=== PATIENT | male | born 1975 | race Caucasian/White ===

== ENCOUNTER 2024-08-29 16:49 | Outpatient (CLI) | payer OTHER, SELFPAY ==
--- NOTE | ~2024-08-29 | XR_ITS ---
XR knee RT 3V Ordering provider: Alberto Hamilton, BECKY History: . Pain in right knee x several mos; no injury . Comparison: None. FINDINGS: BONES: No acute fracture or dislocation. Old healed fracture in the proximal tibia is noted. JOINT SPACES: Narrowing of the medial compartment is noted with marginal osteophytes. Marginal osteop hytes seen in the patella. SOFT TISSUES: Normal. IMPRESSION: No acute osseous abnormality right knee. Severe osteoarthritic changes. Reviewed, dictated and finalized at location A.
--- OUTSIDE RECORDS SUMMARY | 2024-08-29 16:58 | XMS_ITS | Clinical Summary ---
Author Organization [facility] [address] Address [address] [place] [address] Care Team Providers Care Senior Vice President & General Counsel Name Role Phone Alberto Hamilton Primary Care Provider [phone] Allergies No known active allergies Medications No known medications Active Problems No known active problems Surgical History Surgery Date Site/Laterality Comments KNEE ARTHROSCOPY Family History Medical History Relation Name Comments Cancer Other Relation Name Status Comments Other Social History Tobacco Use Types Packs/Day Years Used Date Smoking Tobacco: Never Assessed Sex and Gender Information Value Date Recorded Sex Assigned at Not on file Legal Sex Male 1:04 PM [employer] Gender Identity Not on file Sexual Orientation Not on file Obstetrics History Last Filed Vital Signs Vital Sign Reading Time Taken Comments Blood Pressure 124/73 12/24/2021 3:17 PM CDT Pulse 85 12/24/2021 3:17 PM CDT Temperature - - Respiratory Rate - - Oxygen Saturation - - Inhaled Oxygen Concentration - - Weight 116.7 kg (257 lb 3.2 oz) 12/24/2021 3:17 PM CDT Height 180.3 cm (5' 11 ) 12/24/2021 3:17 PM CDT Body Mass Index 35.87 12/24/2021 3:17 PM CDT Plan of Treatment Health Maintenance Due Date Last Done Comments Colon Cancer Screening-Colonoscopy 1973 Depression Screening 1973 Hepatitis C Screening 1973 Prostate Cancer Screening-PSA 1973 DTaP/Tdap/Td Vaccine (1 - Tdap) 01/31/1984 Hepatitis B Screening 1991 Regular Well Visit/Exam 18-64 1991 Zoster Vaccine (1 of 2) 2023 Influenza Vaccine (#1) 2024 Pneumococcal vaccine <65 Aged Out No longer eligible based on patient's age to complete this topic Insurance [facility] Care Teams Senior Vice President & General Counsel Relationship Specialty Start Date End Date Alberto Hamilton PA [address] [place] [address] PCP - General Family Practice 11/10/21
--- OUTSIDE RECORDS SUMMARY | 2024-08-29 16:58 | XMS_ITS | Data Portability ---
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 Plan of Treatment Reminders Order Date Submit Date Provider Last Modified By Organization Details Last Modified Time Details Appointments None recorded. Lab CBC 2024 025 [facility], [address] [facility], [facility], [place], [address], 5 19:15:20 CMP, serum or plasma 2024 025 [facility], [address] [place] [address], [facility], [place], [address], 5 19:15:20 lipid panel, serum 2024 025 [facility], [address] [facility], [facility], [place], [address], 5 19:15:20 HbA1c (hemoglob in A1c), blood 2024 025 [facility], [address] [facility], [facility], [place], [address], 5 19:15:19 CBC 2023 024 [facility], [address] [facility], [facility], [place], [address], 4 09:14:10 CMP, serum or plasma 2023 024 [facility], [address] [facility], [place] [address], [place], [address], 4 09:14:08 lipid panel, serum 2023 024 [facility], [address] [facility], [facility], [place], [address], 4 09:14:07 CBC 2022 023 [facility], [address] [facility], [facility], [place], [address], 3 10:12:25 CMP, serum or plasma 2022 023 [facility], [address] [facility], [facility], [place], [address], 3 10:12:24 lipid panel, serum 2022 023 [facility], [address] [facility], [facility], [place], [address], 3 10:12:24 Referral None recorded. Procedures None recorded. Surgeries None recorded. Imaging XR, knee 2024 025 [facility] (Im[facility]), [address], [place], [address], 5 19:15:15 Medication Orders cyclobenz aprine 10 mg tablet 2022 023 [email or web address], [address], [place], [id number], 5 18:39:37 naproxen 500 mg tablet 2022 023 [email or web address], [address], [place], [id number], 5 18:39:50 Cialis 20 mg tablet 2022 023 [facility], [address], [place], [id number], 17:27:58 Patient TargetsNo targets recorded. Patient Instructions Encounter Date Encounter Id Patient Instructions Last Modified By Organization Details Last Modified Time 04/10/2023 [id number] A healthy lifestyle: care instructions jnanney Not available 04/10/2023 10:36:46 10/05/2023 [id number] A healthy lifestyle: care instructions jnanney Not available 10/05/2023 11:15:40 08/27/2024 [id number] When You Want to Lose Weight: Care Instructions jnanney Not available 08/27/2024 19:15:04 Reason for Referral None Reported. Results Created Date Observation Date Name Description Value Unit Range Abnormal Flag Note LastModifiedBy Organization Detail LastModifiedTime 10/27/1910/28/2022 LIPID PANEL cholesterol, total 115 mg/dL 100-19 9 Not Available [facility] ([facility]) [address] [place], [address], 10/28/2022 10:12:24 10/27/19 23 10/28/2022 LIPID PANEL triglyceride s 142 mg/dL 0-149 Not Available [facility] ([facility]) [address] [place], [address], 10/28/2022 10:12:24 10/27/19 23 10/28/2022 LIPID PANEL HDL cholesterol 27 mg/dL >39 below low normal Not Available [facility] ([facility]) [address] [place], [address], 10/28/2022 10:12:24 10/27/19 23 10/28/2022 LIPID PANEL VLDL cholesterol deni 25 mg/dL 5-40 Not Available [facility] ([facility]) [address] [place], [address], 10/28/2022 10:12:24 10/27/19 23 10/28/2022 LIPID PANEL LDL chol calc ([facility]) 63 mg/dL 0-99 Not Available [facility] ([facility]) [address] [place], [address], 10/28/2022 10:12:24 10/27/19 23 10/28/2022 COMP. METAB OLIC PANEL (14) glucose 91 mg/dL 70-99 Not Available [facility] ([facility]) [address] [place], [address], 10/28/2022 10:12:24 10/27/19 23 10/28/2022 COMP. METAB OLIC PANEL (14) BUN 16 mg/dL 6-24 Not Available [facility] ([facility]) [address] [place], [address], 10/28/2022 10:12:24 10/27/19 23 10/28/2022 COMP. METAB OLIC PANEL (14) creatinine 1.11 mg/dL 0.76-1 .27 Not Available [facility] ([facility]) [address] [place], [address], 10/28/2022 10:12:24 10/27/19 23 10/28/2022 COMP. METAB OLIC PANEL (14) eGFR 81 mL/mi n/1.7 3 >59 Not Available [facility] ([facility]) [address] [place], [address], 10/28/2022 10:12:24 10/27/19 23 10/28/2022 COMP. METAB OLIC PANEL (14) BUN/creatini ne ratio 14 9-20 Not Available [facility] ([facility]) [address] [place], [address], 10/28/2022 10:12:24 10/27/19 23 10/28/2022 COMP. METAB OLIC PANEL (14) sodium 138 mmol/ L 134-14 4 Not Available [facility] ([facility]) [address] [place], [address], 10/28/2022 10:12:24 10/27/19 23 10/28/2022 COMP. METAB OLIC PANEL (14) potassium 4.5 mmol/ L 3.5-5. 2 Not Available [facility] ([facility]) [address] [facility], [place], [address], 10/28/2022 10:12:24 10/27/19 23 10/28/2022 COMP. METAB OLIC PANEL (14) chloride 102 mmol/ L 96-106 Not Available [facility] ([facility]) [address] [facility], [place], [address], 10/28/2022 10:12:24 10/27/19 23 10/28/2022 COMP. METAB OLIC PANEL (14) carbon dioxide, total 21 mmol/ L 20-29 Not Available [facility] ([facility]) [address] [place], [address], 10/28/2022 10:12:24 10/27/19 23 10/28/2022 COMP. METAB OLIC PANEL (14) calcium 9.4 mg/dL 8.7-10 .2 Not Available [facility] ([facility]) [address] [place], [address], 10/28/2022 10:12:24 10/27/19 23 10/28/2022 COMP. METAB OLIC PANEL (14) protein, total 6.9 g/dL 6.0-8. 5 Not Available [facility] ([facility]) [address] [place], [address], 10/28/2022 10:12:24 10/27/19 23 10/28/2022 COMP. METAB OLIC PANEL (14) albumin 5.0 g/dL 4.0-5. 0 Not Available [facility] ([facility]) [address] [facility], [place], [address], 10/28/2022 10:12:24 10/27/19 23 10/28/2022 COMP. METAB OLIC PANEL (14) globulin, total 1.9 g/dL 1.5-4. 5 Not Available [facility] ([facility]) [address] [place], [address], 10/28/2022 10:12:24 10/27/19 23 10/28/2022 COMP. METAB OLIC PANEL (14) A/G ratio 2.6 1.2-2. 2 above high normal Not Available [facility] ([facility]) [address] [facility], [place], [address], 10/28/2022 10:12:24 10/27/19 23 10/28/2022 COMP. METAB OLIC PANEL (14) bilirubin, total 0.3 mg/dL 0.0-1. 2 Not Available [facility] ([facility]) [address] [place], [address], 10/28/2022 10:12:24 10/27/19 23 10/28/2022 COMP. METAB OLIC PANEL (14) alkaline phosphatase 90 IU/L 44-121 Not Available [facility] ([facility]) [address] [place], [address], 10/28/2022 10:12:24 10/27/19 23 10/28/2022 COMP. METAB OLIC PANEL (14) AST (SGOT) 24 IU/L 0-40 Not Available [facility] ([facility]) [address] [place], [address], 10/28/2022 10:12:24 10/27/19 23 10/28/2022 COMP. METAB OLIC PANEL (14) ALT (SGPT) 16 IU/L 0-44 Not Available [facility] ([facility]) [address] [place], [address], 10/28/2022 10:12:24 10/27/19 23 10/28/2022 CBC, PLATE LET, NO DIFFE RENTI AL WBC 7.2 x10e3 /uL 3.4-10 .8 Not Available [facility] ([facility]) [address] [place], [address], 10/28/2022 10:12:25 10/27/1910/28/2022 CBC, PLATE LET, NO DIFFE RENTI AL RBC 4.91 x10e6 /uL 4.14-5 .80 Not Available [facility] ([facility]) [address] [place], [address], 10/28/2022 10:12:25 10/27/1910/28/2022 CBC, PLATE LET, NO DIFFE RENTI AL hemoglobin 15.2 g/dL 13.0-1 7.7 Not Available [facility] ([facility]) [address] [place], [address], 10/28/2022 10:12:25 10/27/1910/28/2022 CBC, PLATE LET, NO DIFFE RENTI AL hematocrit 44.8 % 37.5-5 1.0 Not Available [facility] ([facility]) [address] [place], [address], 10/28/2022 10:12:25 10/27/1910/28/2022 CBC, PLATE LET, NO DIFFE RENTI AL MCV 91 fL 79-97 Not Available [facility] ([facility]) [address] [place], [address], 10/28/2022 10:12:25 10/27/1910/28/2022 CBC, PLATE LET, NO DIFFE RENTI AL MCH 31.0 pg 26.6-3 3.0 Not Available [facility] ([facility]) [address] [place], [address], 10/28/2022 10:12:25 10/27/1910/28/2022 CBC, PLATE LET, NO DIFFE RENTI AL MCHC 33.9 g/dL 31.5-3 5.7 Not Available [facility] ([facility]) [address] [facility], [place], [address], 10/28/2022 10:12:25 10/27/19 23 10/28/2022 CBC, PLATE LET, NO DIFFE RENTI AL RDW 13.3 % 11.6-1 5.4 Not Available [facility] ([facility]) [address] [facility], [place], [address], 10/28/2022 10:12:25 10/27/19 23 10/28/2022 CBC, PLATE LET, NO DIFFE RENTI AL platelets 163 x10e3 /uL 150-45 0 Not Available [facility] ([facility]) [address] [facility], [place], [address], 10/28/2022 10:12:25 10/27/19 23 10/28/2022 CARDI OVASC ULAR REPOR T interpretati on Note Suppl ement al repor t is avail able. Not Available [facility] ([facility]) [address] [facility], [place], [address], 10/28/2022 10:12:25 10/27/19 23 10/28/2022 CARDI OVASC ULAR REPOR T pdf . Not Available [facility] ([facility]) [address] [facility], [place], [address], 10/28/2022 10:12:25 10/05/1910/06/2023 LIPID PANEL cholesterol, total 169 mg/dL 100-[address] [facility] [address] [place], [address], 10/06/2023 09:14:07 10/05/1910/06/2023 LIPID PANEL triglyceride s 383 mg/dL 0-149 above high normal Not Available [facility] [address] [place], [address], 10/06/2023 09:14:07 10/05/19 24 10/06/2023 LIPID PANEL HDL cholesterol 24 mg/dL >39 below low normal Not Available [address], [address], 10/06/2023 09:14:07 10/05/19 24 10/06/2023 LIPID PANEL VLDL cholesterol deni 62 mg/dL 5-40 above high normal Not Available [address], [address], 10/06/2023 09:14:07 10/05/19 24 10/06/2023 LIPID PANEL LDL chol calc (nih) 83 mg/dL 0-99 Not Available [address], [address], 10/06/2023 09:14:07 10/05/19 24 10/06/2023 COMP. METAB OLIC PANEL (14) glucose 101 mg/dL 70-99 above high normal Not Available [address], [address], 10/06/2023 09:14:08 10/05/19 24 10/06/2023 COMP. METAB OLIC PANEL (14) BUN 14 mg/dL 6-24 Not Available [address], [address], 10/06/2023 09:14:08 10/05/19 24 10/06/2023 COMP. METAB OLIC PANEL (14) creatinine 1.14 mg/dL 0.76-1 .27 Not Available [address], [address], 10/06/2023 09:14:08 10/05/19 24 10/06/2023 COMP. METAB OLIC PANEL (14) eGFR 78 mL/mi n/1.7 3 >59 Not Available [address], [address], 10/06/2023 09:14:08 10/05/19 24 10/06/2023 COMP. METAB OLIC PANEL (14) BUN/creatini ne ratio 12 9-20 Not Available [address], [address], 10/06/2023 09:14:08 10/05/19 24 10/06/2023 COMP. METAB OLIC PANEL (14) sodium 140 mmol/ L 134-14 4 Not Available [address], [address], 10/06/2023 09:14:08 10/05/19 24 10/06/2023 COMP. METAB OLIC PANEL (14) potassium 4.3 mmol/ L 3.5-5. 2 Not Available [address], [address], 10/06/2023 09:14:08 10/05/19 24 10/06/2023 COMP. METAB OLIC PANEL (14) chloride 106 mmol/ L 96-106 Not Available [address], [address], 10/06/2023 09:14:08 10/05/19 24 10/06/2023 COMP. METAB OLIC PANEL (14) carbon dioxide, total 18 mmol/ L 20-29 below low normal Not Available [address], [address], 10/06/2023 09:14:08 10/05/19 24 10/06/2023 COMP. METAB OLIC PANEL (14) calcium 9.6 mg/dL 8.7-10 .2 Not Available [address], [address], 10/06/2023 09:14:08 10/05/19 24 10/06/2023 COMP. METAB OLIC PANEL (14) protein, total 6.8 g/dL 6.0-8. 5 Not Available [address], [address], 10/06/2023 09:14:08 10/05/19 24 10/06/2023 COMP. METAB OLIC PANEL (14) albumin 4.5 g/dL 4.1-5. 1 Not Available [address], [address], 10/06/2023 09:14:08 10/05/19 24 10/06/2023 COMP. METAB OLIC PANEL (14) globulin, total 2.3 g/dL 1.5-4. 5 Not Available [address], [address], 10/06/2023 09:14:08 10/05/19 24 10/06/2023 COMP. METAB OLIC PANEL (14) A/G ratio 2.0 1.2-2. 2 Not Available [address], [address], 10/06/2023 09:14:08 10/05/19 24 10/06/2023 COMP. METAB OLIC PANEL (14) bilirubin, total 0.4 mg/dL 0.0-1. 2 Not Available [address], [address], 10/06/2023 09:14:08 10/05/19 24 10/06/2023 COMP. METAB OLIC PANEL (14) alkaline phosphatase 86 IU/L 44-121 Not Available [address], [address], 10/06/2023 09:14:08 10/05/19 24 10/06/2023 COMP. METAB OLIC PANEL (14) AST (SGOT) 28 IU/L 0-40 Not Available [facility] [address], [address], 10/06/2023 09:14:08 10/05/1910/06/2023 COMP. METAB OLIC PANEL (14) ALT (SGPT) 26 IU/L 0-44 Not Available [address], [address], 10/06/2023 09:14:08 10/05/19 24 10/06/2023 CARDI OVASC ULAR REPOR T interpretati on Note Suppl ement al repor t is avail able. Not Available [address], [address], 10/06/2023 09:14:09 10/05/19 24 10/06/2023 CARDI OVASC ULAR REPOR T pdf . Not Available [address], [address], 10/06/2023 09:14:09 10/05/19 24 10/06/2023 CBC, PLATE LET, NO DIFFE RENTI AL WBC 5.3 x10e3 /uL 3.4-10 .8 Not Available [address], [address], 10/06/2023 09:14:10 10/05/19 24 10/06/2023 CBC, PLATE LET, NO DIFFE RENTI AL RBC 4.76 x10e6 /uL 4.14-5 .80 Not Available [address], [address], 10/06/2023 09:14:10 10/05/19 24 10/06/2023 CBC, PLATE LET, NO DIFFE RENTI AL hemoglobin 14.5 g/dL 13.0-1 7.7 Not Available [address], [address], 10/06/2023 09:14:10 10/05/19 24 10/06/2023 CBC, PLATE LET, NO DIFFE RENTI AL hematocrit 42.4 % 37.5-5 1.0 Not Available [address], [address], 10/06/2023 09:14:10 10/05/1910/06/2023 CBC, PLATE LET, NO DIFFE RENTI AL MCV 89 fL 79-97 Not Available [address], [address], 10/06/2023 09:14:10 10/05/1910/06/2023 CBC, PLATE LET, NO DIFFE RENTI AL MCH 30.5 pg 26.6-3 3.0 Not Available [address], [address], 10/06/2023 09:14:10 10/05/1910/06/2023 CBC, PLATE LET, NO DIFFE RENTI AL MCHC 34.2 g/dL 31.5-3 5.7 Not Available [address], [address], 10/06/2023 09:14:10 10/05/1910/06/2023 CBC, PLATE LET, NO DIFFE RENTI AL RDW 13.5 % 11.6-1 5.4 Not Available [address], [address], 10/06/2023 09:14:10 10/05/1910/06/2023 CBC, PLATE LET, NO DIFFE RENTI AL platelets 168 x10e3 /uL 150-45 0 Not Available [address], [address], 10/06/2023 09:14:10 Result Notes None recorded. Problems No Known Problems Procedures Surgical History Date Name Laterality Status Provider Name and Address Organization Details Recorded Time 2 Unlisted px arthroscopy completed Nicole balderas [place] - [facility] 10/25/2021 16:11:46 Imaging Results None recorded. Procedure Notes None recorded. Medical Equipment None Reported. Allergies No known drug allergies Medications Name Sig Start Date Stop Date Status Note LastModified by Organization Details LastModified Time cyclobenzapr ine 10 mg tablet Take 1 tablet 3 times a day by oral route as needed for 30 days. 08/27 completed Not Available Not Available Not Available atorvastatin 20 mg tablet Take 1 tablet every day by oral route for 90 days. 08/27 completed Not Available Not Available Not Available sulfamethoxa zole 800 mg-trimethop rim 160 mg tablet Take 1 tablet every 12 hours by oral route for 10 days. 10/20 completed Not Available Not Available Not Available sildenafil 100 mg tablet Take 1 tablet every day by oral route as needed. 2024 active Not Available Not Available Not Avai lable cephalexin 500 mg capsule Take 1 capsule 3 times a day by oral route for 10 days. 04/10 completed Not Available Not Available Not Available naproxen 500 mg tablet Take 1 tablet twice a day by oral route for 30 days. 08/27 completed Not Available Not Available Not Available tadalafil 20 mg tablet Take 1 tablet every day by oral route as needed for 30 days. active Not Available Not Available No t Available Pro-50 BID 08/27 completed Not Available Not Available Not Available Tart Braswell 800gm BID 08/27 completed Not Available Not Available Not Available krill oil 1000mg a day 08/27 completed Not Available Not Available Not Available Vitals Date Recorded Body height Body mass index (BMI) Body weight Respiratory rate Oxygen saturation Oxygen saturation in Arterial blood by Pulse oximetry Heart rate Systolic blood pressure Diastolic blood pressure Provider Name and Address Organization Details Last Updated DateTime 3 182.88 cm 36.9 kg/m2 959343. 12 g 16 /min 96 % 96 % 80 /min 116 mm[Hg] 78 mm[Hg] Maria R Davison [place] [facility] 3 17:11:30 Date Recorded Body height Body mass index (BMI) Body weight Oxygen saturation Oxygen saturation in Arterial blood by Pulse oximetry Heart rate Systolic blood pressure Diastolic blood pressure Provider Name and Address Organization Details Last Updated DateTime 3 182.88 cm 37.2 kg/m2 957820. 31 g 95 % 95 % 76 /min 115 mm[Hg] 72 mm[Hg] Samina Saez MA [facility] 3 12:02:02 Date Recorded Body height Body mass index (BMI) Body weight Oxygen saturation Oxygen saturation in Arterial blood by Pulse oximetry Heart rate Systolic blood pressure Diastolic blood pressure Provider Name and Address Organization Details Last Updated DateTime 3 182.88 cm 38.8 kg/m2 061273. 42 g 96 % 96 % 66 /min 119 mm[Hg] 78 mm[Hg] Samina Saez MA [facility] 3 10:08:06 Date Recorded Body height Body mass index (BMI) Body weight Oxygen saturation Oxygen saturation in Arterial blood by Pulse oximetry Heart rate Systolic blood pressure Diastolic blood pressure Provider Name and Address Organization Details Last Updated DateTime 4 182.88 cm 42.2 kg/m2 708350. 23 g 98 % 98 % 71 /min 128 mm[Hg] 84 mm[Hg] Jo Ramos MA [facility] 4 10:53:30 Date Recorded Body height Body mass index (BMI) Body weight Respiratory rate Oxygen saturation Oxygen saturation in Arterial blood by Pulse oximetry Heart rate Systolic blood pressure Diastolic blood pressure Provider Name and Address Organization Details Last Updated DateTime 5 182.88 cm 44.9 kg/m2 139034. 07 g 16 /min 95 % 95 % 98 /min 130 mm[Hg] 84 mm[Hg] Xin Stevenson MA [facility] 5 18:42:11 Social History Question Answer Notes LastModified by Organizat ion Details LastModified Time Tobacco Smoking Status Former Smoker Quit month and half ago Samina Saez MA [facility], [facility] 04/10/2023 10:09:02 What Is Your Level Of Alcohol Consumption? None Information not available 08/27/2024 Are You Blind Or Do You Have Difficulty Seeing? No Information not available 10/20/2022 What Is Your Level Of Caffeine Consumption? Moderate Information not available 10/25/2021 In The 14 Days Before Symptom Onset, Have You Had Close Contact With A Laboratory-confi rmed COVID-19 While That Case Was Ill? No Information not available 10/25/2021 In The 14 Days Before Symptom Onset, Have You Had Close Contact With A Person Who Is Under Investigation For COVID-19 While That Person Was Ill? No Information not available 10/25/2021 Have You Been To An Area Known To Be High Risk For COVID-19? No Information not available 10/25/2021 Are You Currently Employed? Yes Information not available 10/25/2021 Are You Deaf Or Do You Have Serious Difficulty Hearing? No Information not available 10/20/2022 What Type Of Diet Are You Following? REGULAR Information not available 10/25/2021 Do You Or Have You Ever Used E-cigarettes Or Vape? Current User Of Electronic Cigarettes Information not available 04/10/2023 What Is Your Occupation? [employer] Information not available 10/25/2021 What Was The Date Of Your Most Recent Tobacco Screening? 08/27/2024 Information not available 08/27/2024 What Is Your Relationship Status? Information not available 10/25/2021 Are You Sexually Active? Yes Information not available 10/20/2022 Do You Have Smoke And Carbon Monoxide Detectors In Your Home? Yes Information not available 10/25/2021 Do You Or Have You Ever Used Smokeless Tobacco? Never Used Smokeless Tobacco Information not available 04/10/2023 How Much Tobacco Do You Smoke? 1 PPD 1.5 Packs A Day Information not available 10/25/2021 Do You Feel Stressed (tense, Restless, Nervous, Or Anxious, Or Unable To Sleep At Night)? [id number] Information not available 04/10/2023 Do You Use Any Illicit Or Recreational Drugs? No Information not available 10/25/2021 Has Tobacco Cessation Counseling Been Provided? Yes Information not available 10/25/2021 On What Date Was Tobacco Cessation Counseling Provided? 08/27/2024 Information not available 08/27/2024 Do You Or Have You Ever Used Any Other Forms Of Tobacco Or Nicotine? Yes Information not available 04/10/2023 Sex: Male Functional Status Question Answer Note LastModified by Organization D etails LastModified Time Are you able to care for yourself? Yes Information not available 10/20/2022 What is your exercise level? Moderate Information not available 10/25/2021 Mental Status None recorded. Family History Nothing Reported Notes:Both parents have canc er Medical History Condition Response Coronary Artery Disease N Other N Atrial Fibrillation N High Blood Pressure N Thyroid Problems N Kidney or Bladder Problems N GI Problems N Depression N COPD N Blood Clots N Eating Disorder N Skin Problems N Anemia N Heart Attack ([place]) N Anxiety Disorder N Diabetes N Muscle, Joint, or Bone Problems N Seizures/Epilepsy N Acid Reflux (GERD) N Cancer N Stroke N Asthma N Allergies N ADHD N Substance Abuse N High Cholesterol N Hepatitis N Liver Disease N Schizophrenia N Headaches N Heart Failure N Osteoporosis N Past Encounters Encounter ID Performer Location Encounter Start Date Encounter Closed Date Diagnosis/Indication Diagnosis SNOMED-CT Code Diagnosis ICD10 Code Diagnosis Note [id number] Nelda Hamilton PA-C [facility] [address] [place] [address] 10/25/2021 16:07:07 10/25/2021 17:02:26 Pain of bilateral knee joints 2569108183 43989 M25.561 Bilateral effusion of joints of knees 8955588887 0337994 M25.461 Primary er ectile dysfunction 478305644 N52.01 Adult heal th examination 116706008 Z00.00 [id number] [facility] [address] [place] [address] 11/12/2021 11:46:52 11/12/2021 12:48:30 Epidermoid cyst of skin 970570820 L72.3 Primary er ectile dysfunction 482396226 N52.01 [id number] Nelda Hamilton PA-C [facility] [address] [place] [address] 10/20/2022 16:57:13 10/21/2022 10:19:56 Primary erectile dysfunction 000718543 N52.01 [id number] Nelda Hamilton PA-C [facility] [address] [place] [address] 10/26/2022 11:56:05 10/27/2022 09:29:36 Sebaceous cyst of skin 550514627 L72.3 [id number] Nelda Hamilton PA-C [facility] [address] [place] [address] 04/10/2023 09:53:35 04/12/2023 12:54:36 Strain of trapezius muscle 272078219 S46.812S Overweight 318935805 E66 .3 [id number] Nelda Hamilton PA-C [facility] [address] [place] [address] 10/05/2023 10:33:33 10/11/2023 13:25:33 Adult health examination 676984371 Z00.00 Overweight 808285637 E66 .3 [id number] Nelda Hamilton PA-C [facility] [address] [place] [address] 08/27/2024 18:21:36 08/27/2024 19:16:26 Pain of right knee joint 8026475105 79904 M25.561 Overweight 828373015 E66 .3 Mixed hyperlipidemia 267 546143 E78.2 Health Concerns Section Related Observation LastModified by Organization Detai ls LastModified Time None Recorded Concern Status LastModified by Organization Details LastModified Time None Recorded Advance Directives Directive None Recorded Payers Encounter Date Sequence Insurance Name Policy Number Policy Charles Covered Member ID Charles Member ID Guarantor Name 10/20/2022 1 [place] [id number] Joe Lebro Sr [id number] Joe Lebro 10/26/2022 1 [place] [id number] Joe Lebro Sr [id number] Joe Lebro 04/10/2023 1 [place] [id number] [facility] Sr [id number] Joe Lebro 10/05/2023 1 [facility] (POS) [id number] Joe Lebro [id number] Joe Lebro 08/27/2024 1 [facility] (POS) [id number] Joe Lebro [id number] Joe [facility] Notes Date Note Type Note Provider Name and Address Organization Details Recorded Time 10/20/2022 text/html has annual check up..also needs refill of tadalafil..also has a recurrent lump on head Nelda Hamilton PA-C Attn: [address] [place], [address], [facility] 10/20/2022 17:28:28 10/26/2022 text/html sebaceous cyst o n scalp... 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 reoccurred...stab sherron pain...no positional relief..cant lay flat or on stomach... Nelda Hamilton PA-C Attn: [address] [place], [address], [facility] 04/10/2023 10:38:04 10/05/2023 text/html yearly phys...no complaints Nelda Hamilton PA-C Attn: [address] [place], [address], [facility] 10/05/2023 11:16:54 08/27/2024 text/html check up..needs labs...rt knee pain 23 years ago had meniscal tear...now feels as if its bone on bone..cant go down steps cant sleep... Nelda Hamilton PA-C Attn: Accounting,[address] [place], [address], [facility] 08/27/2024 19:16:23
--- OUTSIDE RECORDS SUMMARY | 2024-08-29 16:58 | XMS_ITS | Referral Summary ---
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
[2024-08-29 17:30] LABS: Basophils Absolute Auto 0.1 K/mm3 (0.0-0.1); Basophils Percent Auto 0.8 % (0.2-1.2); Eosinophils Absolute Auto 0.1 K/mm3 (0-0.3); Eosinophils Percent Auto 1.8 % (0-4.4); Hematocrit 37.5 % (42.0-52.0); Hemoglobin 13.5 g/dL (14.0-18.0); Immature Granulocyte Absolute 0.03 K/mm3 (0.00-0.031); Immature Granulocyte Percent A 0.5 % (0-0.5); Lymphocytes Absolute Auto 1.69 K/mm3 (0.9-3.2); Lymphocytes Percent Auto 27.5 % (18.3-44.2); Mean Corpuscular Volume 86.2 fl (80-100); Mean Platelet Volume 10.9 fl (7.4-10.4); Monocytes Absolute Auto 0.5 K/mm3 (0.1-0.6); Monocytes Percent Auto 7.8 % (2.6-8.5); Neutrophils Absolute Auto 3.8 K/mm3 (1.3-6.7); Neutrophils Percent Auto 61.6 % (45.5-73.1); Platelet Count Result 157 k/mm3 (150-375); Red Blood Count 4.35 M/mm3 (4.6-6.20); Red Cell Distribution Width 13.8 % (11.5-14.5); White Blood Count 6.2 K/mm3 (4.5-10.0)
[2024-08-29 17:39] LABS: Hemoglobin A1C 5.9 % (<5.7)
[2024-08-29 17:50] LABS: LDL Cholesterol Direct 53 mg/dL
[2024-08-29 17:52] LABS: Alanine Aminotransferase 53 U/L (6-50); Albumin Level 4.5 g/dL (3.5-5.1); Alkaline Phosphatase 88 U/L (38-126); Anion Gap 9 mmol/L (4-12); Aspartate Amino Transferase 40 U/L (17-59); Bilirubin,Total 0.5 mg/dL (0.2-1.3); Blood Urea Nitrogen 19 mg/dL (9-20); Calcium 9.2 mg/dL (8.4-10.2); Carbon Dioxide 28 mmol/L (22-30); Chloride 102 mmol/L (98-107); Cholesterol 162 mg/dL (0-200); Estimated Glomerular Filt Rate > 60; Glucose 120 mg/dL (65-110); Potassium 3.9 mmol/L (3.4-5.0); Sodium 139 mmol/L (137-145)
[2024-08-29 19:08] LABS: Triglycerides 752 mg/dL (<150)
== END 2024-08-29 16:50 | disposition home or self-care (01) ==
LOC: ANHLAB 16:56
PROVIDERS: Visit Provider Physician Assistant
DX: E78.2 Mixed hyperlipidemia (principal); M17.11 Unilateral primary osteoarthritis, right knee
CPT/HCPCS: 36415; 73562; 80053; 80061; 83036; 85025